=== PATIENT | female | born 1990 | race Native Hawaiian/Other Pacific Islander ===

== ENCOUNTER 2017-06-25 21:39 | Emergency (ER) | payer OTHER ==
--- NOTE | 2017-06-25 22:18 | ED PDOC ---
HPI: Psych/Substance Abuse Time Seen by Provider: 06/25/17 21:45 Chief Complaint (Provider): Alcohol abuse History Per: Patient, Family Additional Complaint(s): Pt reports drinking alsohol tonight with co-workers. Pt with very unsteady gait and slurred speech. Pt denies complaint and requesting to smoke. Past Medical History Reviewed: Historical Data, Nursing Documentation, Vital Signs - Medical History PMH: No Chronic Diseases - Surgical History Surgical History: No Surg Hx - Family History Family History: States: No Known Family Hx - Living Arrangements Living Arrangements: With Family - Social History Current smoker - smoking cessation education provided: No Alcohol: Occasional - Allergies Allergies/Adverse Reactions: Allergies Allergy/AdvReac Type Severity Reaction Status Date / Time No Known Allergies Allergy Verified 06/25/17 21:55 Review of Systems ROS Statement: Except As Marked, All Systems Reviewed And Found Negative Constitutional: Negative for: Fever, Chills Respiratory: Negative for: Cough Gastrointestinal: Negative for: Nausea, Vomiting, Abdominal Pain Physical Exam - Reviewed Nursing Documentation Reviewed: Yes Vital Signs Reviewed: Yes - Physical Exam Appears: Positive for: Well, Non-toxic, No Acute Distress Head Exam: Positive for: ATRAUMATIC, NORMAL INSPECTION, NORMOCEPHALIC Skin: Positive for: Normal Color, Warm, DRY Eye Exam: Positive for: Normal appearance, EOMI, PERRL ENT: Positive for: Normal ENT Inspection Neck: Positive for: Normal, Painless ROM Cardiovascular/Chest: Positive for: Regular Rate, Rhythm Respiratory: Positive for: CNT, Normal Breath Sounds Back: Positive for: Normal Inspection Extremity: Positive for: Normal ROM Neurologic/Psych: Positive for: Alert. Negative for: Oriented, Gait Medical Decision Making Medical Decision Making: Pt repeatedly getting out of bed and walking into adjacent patient room. Pt becomes aggressive and will not follow directions. Ativan and restraints ordered. Endorsed pending labs and sobriety. Disposition - Clinical Impression Clinical Impression: Alcohol abuse - Patient ED Disposition Is Patient to be Admitted: Transfer of Care - Disposition Disposition: Transfer of Care Disposition Time: 00:07 Condition: STABLE
[2017-06-25 22:45] VITALS: TEMP 97.9
--- NOTE | 2017-06-26 01:27 | ED PDOC ---
- ECG O2 Sat by Pulse Oximetry: 96 - Progress ED Course And Treament: 0000 Signed out to me pending sobriety. 0100 Sleeping comfortably. 0320 No distress. Still sleeping. 0543 AOx3. Gait steady unassisted. Offers no complaints. Disposition - Clinical Impression Clinical Impression: Alcohol intoxication - POA Present On Arrival: None - Disposition Disposition: Routine/Home Disposition Time: 05:44 Condition: IMPROVED Instructions: Effects of Alcohol on Your Health Forms: [facility] (Thai) Print Language: SWEDISH
[2017-06-26 05:53] VITALS: BP 102/58; PULSE 84; RESP 11; O2SAT 100
== END 2017-06-26 07:05 | disposition home or self-care (01) ==
LOC: H.ER 21:39
DX: F10.129 Alcohol abuse with intoxication, unspecified (principal)
CPT/HCPCS: 80320; 82948; 96372; 99285; J1630; J2060